=== PATIENT | female | born 1975 | race Caucasian/White ===

== ENCOUNTER 2019-05-20 14:45 | Observation (INO) ==
[2019-05-20] MEDS ORDERED: NS 1000 ML 1,000 ML ONE ×2 (15:35→18:58)
[2019-05-20] MEDS ORDERED: NS 1000 ML 1,000 ML IV ONE ×3 (15:35→19:06)
[2019-05-20 16:10] LABS: BASOPHILS # (AUTO) 0.1 X10^3/uL (0.0-0.1); BASOPHILS % (AUTO) 0.8 % (0.2-1.0); EOSINOPHILS # (AUTO) 0.1 x10^3/uL (0.0-0.2); EOSINOPHILS % (AUTO) 1.2 % (0.9-2.9); HEMATOCRIT 39.7 % (36.0-47.0); LYMPHOCYTES # (AUTO) 2.2 X10^3/uL (1.3-2.9); LYMPHOCYTES % (AUTO) 31.6 % (21.0-51.0); MEAN CORPUSCULAR HGB CONC 35.4 g/dL (33.0-35.0); MEAN CORPUSCULAR VOLUME 93.2 fL (80.0-100.0); MONOCYTES # (AUTO) 0.4 x10^3/uL (0.3-0.8); MONOCYTES % (AUTO) 5.6 % (0.0-13.0); NEUTROPHILS # (AUTO) 4.3 x10^3/uL (2.2-4.8); NEUTROPHILS % (AUTO) 60.8 % (42.0-75.0); PLATELET COUNT 159 X10^3/uL (150.0-450.0); RED BLOOD COUNT 4.26 X10^6/uL (3.5-5.4); RED CELL DISTRIBUTION WIDTH 12.6 % (11.6-16.5)
[2019-05-20 16:18] LABS: ALANINE AMINOTRANSFERASE 29 Units/L (12-78); ALBUMIN 3.3 g/dL (3.4-5.0); ALKALINE PHOSPHATASE 76 Units/L (46-116); AMYLASE 46 Units/L (25-115); ASPARTATE AMINO TRANSFERASE 22 Units/L (15-37); BLOOD UREA NITROGEN 4 mg/dL (7-18); CARBON DIOXIDE 26.1 mmol/L (21-32); CHLORIDE 106 mmol/L (98-107); COR CA(FOR HYPOALB) 8.6 mg/dL (8.5-10.1); CREATININE 0.63 mg/dL (0.55-1.02); LIPASE 75 Units/L (73-393); SODIUM 138 mmol/L (136-145); TOTAL PROTEIN 6.2 g/dL (6.4-8.2); eGFR NON BLACK RACES > 60 (>60)
[2019-05-20] MEDS ORDERED: ZOFRAN INJ 4 MG VIAL ONE (17:15)
[2019-05-20] MEDS ORDERED: ZOFRAN INJ 4 MG VIAL IVP ONE (17:15)
[2019-05-20] MEDS ORDERED: DEMEROL INJ IVP PRN (17:15)
[2019-05-20] MEDS ORDERED: DEMEROL INJ ONE (17:18)
--- NOTE | 2019-05-20 18:05 | ED.ABDFE ---
HPI Time Seen Time Seen by Provider: 05/20/19 16:01 PCP Primary Care Physician: SERGIO Complaint Chief Complaint:: PT WAS SEEN IN ER 05/19/19, DIAGNOSED WITH REGIONAL ENTERIRIS OF SMALL BOWEL. PT STATES SHE IS NO BETTER, C/O ABD PAIN, VOMITTING, SHARP PAINS SHOOTING THRU TO HER HEART AREA, AND PT FEELS FAINT EVERY TIME SHE GETS UP. Source History Provided: Patient Mode of arrival Mode of Arrival: Ambulatory Timing Onset of Chief Complaint: 05/20/19 PMH PMH Past Medical History: No Past Surgical History: Yes Surgical History: Hysterectomy Family History History of Family Medical Conditions: No Social History Type of Tobacco Use: Cigarettes How many years tobacco product used: 25 Alcohol Use: None Do you use any recreational Drugs:: No Lives Where: Home infectious screening In the last 2 months have you had wt loss of >10#?: NO Have you had fever, night sweats or hemotysis?: No Have you traveled outside the country in the last 6 months?: No Isolation: Standard PE Vital Signs Vitals: Temperature 98.1 F Pulse Rate 60 Respiratory Rate 20 Blood Pressure [Left Arm] 128/74 Blood Pressure 108/55 O2 Sat by Pulse Oximetry 96 ROR Labs Reviewed Result Diagrams: 05/20/19 15:43 05/20/19 15:43 Laboratory: WBC 7.0 X10^3/uL (3.6-10.0) 05/20/19 15:43 RBC 4.26 X10^6/uL (3.5-5.4) 05/20/19 15:43 Hgb 14.0 g/dL (12.0-16.0) 05/20/19 15:43 Hct 39.7 % (36.0-47.0) 05/20/19 15:43 MCV 93.2 fL (80.0-100.0) 05/20/19 15:43 MCH 33.0 pg (27.0-34.0) 05/20/19 15:43 MCHC 35.4 g/dL (33.0-35.0) H 05/20/19 15:43 RDW 12.6 % (11.6-16.5) 05/20/19 15:43 Plt Count 159 X10^3/uL (150.0-450.0) 05/20/19 15:43 MPV 10.0 fL (7.4-11.0) 05/20/19 15:43 Neut % (Auto) 60.8 % (42.0-75.0) 05/20/19 15:43 Lymph % (Auto) 31.6 % (21.0-51.0) 05/20/19 15:43 [place] % (Auto) 5.6 % (0.0-13.0) 05/20/19 15:43 Eos % (Auto) 1.2 % (0.9-2.9) 05/20/19 15:43 Baso % (Auto) 0.8 % (0.2-1.0) 05/20/19 15:43 Neut # (Auto) 4.3 x10^3/uL (2.2-4.8) 05/20/19 15:43 Lymph # (Auto) 2.2 X10^3/uL (1.3-2.9) 05/20/19 15:43 [place] # (Auto) 0.4 x10^3/uL (0.3-0.8) 05/20/19 15:43 Eos # (Auto) 0.1 x10^3/uL (0.0-0.2) 05/20/19 15:43 Baso # (Auto) 0.1 X10^3/uL (0.0-0.1) 05/20/19 15:43 Absolute Nucleated RBC 0.0 /100WBC 05/20/19 15:43 Sodium 138 mmol/L (136-145) 05/20/19 15:43 Corrected Sodium TNP 05/20/19 15:43 Potassium 3.9 mmol/L (3.5-5.1) 05/20/19 15:43 Chloride 106 mmol/L (98-107) 05/20/19 15:43 Carbon Dioxide 26.1 mmol/L (21-32) 05/20/19 15:43 BUN 4 mg/dL (7-18) L 05/20/19 15:43 Creatinine 0.63 mg/dL (0.55-1.02) 05/20/19 15:43 Est GFR (MDRD) Af Amer > 60 (>60) 05/20/19 15:43 Est GFR (MDRD) Non-Af > 60 (>60) 05/20/19 15:43 Glucose 93 mg/dL (65-99) 05/20/19 15:43 Calcium 8.0 mg/dL (8.5-10.1) L 05/20/19 15:43 Corrected Calcium 8.6 mg/dL (8.5-10.1) 05/20/19 15:43 Total Bilirubin 0.20 mg/dL (0.2-1.0) 05/20/19 15:43 AST 22 Units/L (15-37) 05/20/19 15:43 ALT 29 Units/L (12-78) 05/20/19 15:43 Alkaline Phosphatase 76 Units/L (46-116) 05/20/19 15:43 Total Protein 6.2 g/dL (6.4-8.2) L 05/20/19 15:43 Albumin 3.3 g/dL (3.4-5.0) L 05/20/19 15:43 Globulin 2.9 g/dL (2.5-4.5) 05/20/19 15:43 Albumin/Globulin Ratio 1.1 Ratio (1.1-2.1) 05/20/19 15:43 Amylase 46 Units/L (25-115) 05/20/19 15:43 Lipase 75 Units/L (73-393) 05/20/19 15:43 Opioid Opioid Risk Tool Age (Edinson box if 16-45): Yes Total: 1 Total Score Risk Category: Low Risk Copyright: Juan Manuel GARCIA predicting aberrant behaviors Diagnosis Discharge Problem: Abscess or cellulitis of scalp Instructions Instructions: Skin Abscess, [id number] Cellulitis, Adult, [id number] Forms: Excuse From Work Patient Portal
[2019-05-20] MEDS ORDERED: ZOFRAN INJ 4 MG VIAL IVP PRN (19:05)
--- NOTE | 2019-05-20 21:33 | RAD ---
HISTORY: Abdominal Pain Study: Frontal view of the chest, flat and upright views of the abdomen Comparison: None. Findings: Cardiomediastinal silhouette is normal in size. No focal consolidations, pleural effusions or pneumothorax. Osseous structures are without acute abnormality. Flat and upright views of the abdomen demonstrates a normal bowel gas pattern. No free air. No abnormal calcifications or abnormal soft tissue shadows. No acute bony abnormalities. IMPRESSION: 1. No acute cardiopulmonary disease. 2. No evidence for acute abdominal pathology. Reported By:
[2019-05-20] MEDS: NS 1000 ML 1,000 ML IV SCH (21:50)
[2019-05-20] MEDS: DEMEROL INJ IVP PRN (21:51)
[2019-05-21 01:22] VITALS: BMI 32.5
[2019-05-21] MEDS: DEMEROL INJ IVP PRN (01:56)
[2019-05-21 04:17] LABS: BILIRUBIN,URINE NEGATIVE (NEGATIVE); BLOOD/HEMOGLOBIN,URINE NEGATIVE (NEGATIVE); GLUCOSE, URINE NEGATIVE (NEGATIVE); KETONES,URINE NEGATIVE (NEGATIVE); LEUKOCYTE ESTERASE ,URINE 1+ (NEGATIVE); NITRITES,URINE NEGATIVE (NEGATIVE); PROTEIN,URINE NEGATIVE (NEGATIVE); UROBILINOGEN,URINE 1+ (NORMAL)
[2019-05-21 04:19] LABS: APPEARANCE,URINE CLEAR (CLEAR); COLOR,URINE YELLOW (YELLOW)
[2019-05-21 04:24] LABS: BACTERIA,URINE NEGATIVE /HPF (NEGATIVE); RBC,URINE NONE SEEN /HPF (0-3); SQUAMOUS EPITHELIAL CELL,UR MODERATE /HPF (NEGATIVE)
[2019-05-21 04:45] LABS: BASOPHILS % (AUTO) 0.6 % (0.2-1.0); EOSINOPHILS # (AUTO) 0.1 x10^3/uL (0.0-0.2); HEMATOCRIT 38.1 % (36.0-47.0); HEMOGLOBIN 13.1 g/dL (12.0-16.0); LYMPHOCYTES # (AUTO) 3.6 X10^3/uL (1.3-2.9); LYMPHOCYTES % (AUTO) 49.6 % (21.0-51.0); MEAN CORPUSCULAR HEMOGLOBIN 32.5 pg (27.0-34.0); MEAN CORPUSCULAR HGB CONC 34.3 g/dL (33.0-35.0); MEAN CORPUSCULAR VOLUME 94.8 fL (80.0-100.0); MEAN PLATELET VOLUME 10.3 fL (7.4-11.0); MONOCYTES # (AUTO) 0.4 x10^3/uL (0.3-0.8); MONOCYTES % (AUTO) 5.5 % (0.0-13.0); NEUTROPHILS # (AUTO) 3.1 x10^3/uL (2.2-4.8); NEUTROPHILS % (AUTO) 42.3 % (42.0-75.0); PLATELET COUNT 144 X10^3/uL (150.0-450.0); RED BLOOD COUNT 4.02 X10^6/uL (3.5-5.4); RED CELL DISTRIBUTION WIDTH 12.3 % (11.6-16.5); WHITE BLOOD COUNT 7.2 X10^3/uL (3.6-10.0)
[2019-05-21 05:01] LABS: ALANINE AMINOTRANSFERASE 26 Units/L (12-78); ALBUMIN 2.8 g/dL (3.4-5.0); ALKALINE PHOSPHATASE 66 Units/L (46-116); AMYLASE 42 Units/L (25-115); ASPARTATE AMINO TRANSFERASE 23 Units/L (15-37); BLOOD UREA NITROGEN 5 mg/dL (7-18); CALCIUM 7.6 mg/dL (8.5-10.1); CARBON DIOXIDE 27.9 mmol/L (21-32); CHLORIDE 111 mmol/L (98-107); COR CA(FOR HYPOALB) 8.6 mg/dL (8.5-10.1); CREATININE 0.71 mg/dL (0.55-1.02); LIPASE 80 Units/L (73-393); SODIUM 143 mmol/L (136-145); TOTAL PROTEIN 5.4 g/dL (6.4-8.2); eGFR NON BLACK RACES > 60 (>60)
[2019-05-21] MEDS ORDERED: DEMEROL INJ IVP PRN (08:08)
[2019-05-21] MEDS ORDERED: PROTONIX INJ 40 MG VIAL IVP SCH ×2 (09:00→21:00)
--- NOTE | 2019-05-21 09:37 | DR.H&P ---
H&P - History & Physical for Day of: H&P Date: 05/20/19 - Chief Complaint Chief Complaint: ABDOMINAL PAIN, N/V - History of Present Illness History of Present Illness: PT WAS SEEN IN ER 05/19/19, DIAGNOSED WITH REGIONAL ENTERIRIS OF SMALL BOWEL. PT STATES SHE IS NO BETTER, C/O ABD PAIN, VOMITTING, SHARP PAINS SHOOTING THRU TO HER HEART AREA, AND PT FEELS FAINT EVERY TIME SHE GETS UP. PT STATES SHE HAS HAD "STOMACH PROBLEMS" HAS STOPPED TAKING NSAIDS DUE TO PAIN IN EPIGASTRIC AREA. PT ADMITTED FOR TREATMENT AND EVALUATION OF ACUTE ABDOMINAL PAIN. - Past Medical History Past Medical History: denies: Anxiety, Arthritis, GERD - Past Surgical History Surgical History: [employer] TE[employer] Surgery, Hysterectomy, Other - Family History Family Medical History: Diabetes Mellitus, Cancer, Coronary Artery Disease, Hypertension - Social History Does patient currently use any type of tobacco product: Yes Have you used tobacco products in the last 12 months: Yes Type of Tobacco Use: Cigarettes How many years tobacco product used: 25 Alcohol Use: None Drug Use: None - Medications Home Medications: iron Allergy (Verified 04/10/18 17:04) CONTINUE taking the following medications hydrocodone-acetaminophen 1 tab PO Q6H PRN 05/21/19 [History] metronidazole [Flagyl] 500 mg PO TID 05/21/19 [History] - Review of Systems Constitutional: Malaise Eyes: No Symptoms Reported ENT: No Symptoms Reported Respiratory: No Symptoms Reported Cardiovascular: No Symptoms Reported Gastrointestinal: Nausea, Vomiting, Abdominal Pain Musculoskeletal: No Symptoms Reported Skin: No Symptoms Reported Neurological: No Symptoms Reported - Physical Exam Vital Signs: Temperature 98.6 F Pulse Rate [Brachial] 51 Pulse Rate 50 Respiratory Rate 18 Blood Pressure [Left Arm] 98/57 Blood Pressure 113/57 O2 Sat by Pulse Oximetry 95 Oriented: Normal Eyes: Normal Ear: Normal Nose: Normal Throat: Normal Respiratory: Clear Throughout Cardiovascular: Normal : Normal Auscultation: Bowel Sounds: Normal Palpation: Normal Tenderness: RUQ, Epigastric Skin: Normal Musculoskeletal: Normal Psychiatric: Anxiety Affect: Anxious Speech Pattern: Clear, Appropriate - Assessment/Plan (1) Epigastric abdominal pain Status: Acute Plan: ADMIT, NPO ,GENTLE IV HYDRATION. PAIN CONTROL, US. DR LANCASTER CONSULTED. VERIFY HOME MEDICATION. STOOL STUDIES (2) Abdominal pain Qualifiers: Abdominal location: right upper quadrant Qualified Code(s): R10.11 - Right upper quadrant pain Status: Acute (3) Regional enteritis of small bowel Qualifiers: Digestive disease complication type: without complication Qualified Code(s): K50.00 - Crohn's disease of small intestine without complications Status: Acute - Allergies Allergies/Adverse Reactions: Allergies Allergy/AdvReac Type Severity Reaction Status Date / Time iron Allergy Verified 04/10/18 17:04
--- NOTE | 2019-05-21 11:12 | US ---
HISTORY: Abdominal pain, nausea, diarrhea, abdominal swelling Study: Right upper quadrant abdominal ultrasound Comparison: None Technique: Multiple valenzuela scale and color flow Doppler images of the right upper quadrant were obtained. Findings: The liver is normal in echotexture and size. No focal intraparenchymal mass or intrahepatic biliary ductal dilatation is observed. There is hepatopetal flow in the portal vein. No evidence of gallstones. The common bile duct measures 5 mm. There is mild gallbladder wall thickening with questionable trace pericholecystic fluid. No sonographic Gonzales's sign reported. The right kidney appears normal in size without focal parenchymal mass or nephrolithiasis. The right kidney measures 10 x 6.6 x 2.3 cm. No evidence of hydronephrosis. Pancreas not well visualized. IMPRESSION: 1. Mild gallbladder wall thickening and trace pericholecystic fluid. No gallstones or sonographic Gonzales sign was reported. Consider correlation with nuclear medicine hepatobiliary scan if there is concern for acute or chronic cholecystitis. Reported By:
[2019-05-21] MEDS: NS 1000 ML 1,000 ML IV SCH (11:26)
[2019-05-21] MEDS ORDERED: DIPRIVAN VIAL 20 ML ONE (11:29)
[2019-05-21] MEDS ORDERED: XYLOCAINE-MPF 1% ONE (11:30)
[2019-05-21] MEDS ORDERED: NS 500 ML IV 500 ML IV ONE (11:45)
--- NOTE | 2019-05-21 12:16 | OR.IMMED ---
Immediate Post-Op Note - Immediate Post-Op Note Pre-Op Diagnosis: PUD, Gastritis Post-Op Diagnosis: acute duodenal ulcer . Gastritis of the antrum . Procedure: EGD with Bx. Surgeon/Audio Tape Librarian: saeed Specimens Removed: antrum.. Drains: NONE Condition: Stable Final Diagnosis: duodenal ulcer. gastritis . on Protonix and carafate .
[2019-05-21] MEDS ORDERED: CARAFATE ORAL SUSP PO ONE (12:58)
[2019-05-21] MEDS ORDERED: CARAFATE ORAL SUSP PO SCH (13:15)
[2019-05-21] MEDS ORDERED: STERILE WATER IRRIGATION IR ONE (14:34)
[2019-05-21] MEDS ORDERED: DIPRIVAN VIAL ONE (15:26)
[2019-05-21] MEDS ORDERED: XYLOCAINE 1 % (PLAIN) ONE (15:26)
[2019-05-22 11:21] VITALS: BP 97/54
== END 2019-05-21 14:40 | disposition home or self-care (01) ==
LOC: MED/SURG 14:45 → ER 14:45 → MED/SURG 21:24
PROVIDERS: ADMIT Internal Medicine; ATTEND Internal Medicine
DX: R10.84 Generalized abdominal pain; K21.9 Gastro-esophageal reflux disease without esophagitis; K50.018 Crohn's disease of small intestine with other complication; R10.13 Epigastric pain; K52.89 Other specified noninfective gastroenteritis and colitis; K26.3 Acute duodenal ulcer without hemorrhage or perforation; K29.70 Gastritis, unspecified, without bleeding; R11.2 Nausea with vomiting, unspecified; L03.811 Cellulitis of head [any part, except face]; R10.11 Right upper quadrant pain
CPT/HCPCS: 36415; 74022; 76705; 80053; 81001; 82150; 83690; 85025; 94760; 96365; 96367; 96374; 96375; 99284; A4217; A4222; C9113; G0378; J2175; J2405; J2704; J7030; J7040